=== PATIENT | female | born 1995 | race Caucasian/White ===

== ENCOUNTER → 2018-06-11 | Outpatient (CLI) | payer OTHER ==
--- NOTE | 2018-06-11 15:40 | RADIOLOGY REPORT (SQ) ---
EXAM DESCRIPTION: MRI RT LOWER JOINT COMBO COMPLETED DATE/TIME: 06/11/2018 3:20 pm REASON FOR STUDY: RIGHT HIP PAIN M25.551 PAIN IN RIGHT HIP COMPARISON: None. TECHNIQUE: Righthip images acquired and stored on PACS. Multiplanar images to include fat sensitive sequences as T1, fluid sensitive sequences as T2/STIR and gradient echo sequences. Large FOV fat and fluid sensitive sequences include pelvis and opposite hip. Additional post IV contrast-enhanced images performed. 10 cc. Dotarem IV. LIMITATIONS: None. FINDINGS: BONE CORTEX AND MARROW: No generalized marrow replacement. No occult fracture. No worriso me bone lesions. TARGETED HIP: FEMORAL HEAD: There is a very minimal amount of signal alteration seen only on the T1 weighted images along the superior femoral head. Doubt avascular necrosis. No fracture. No enhancement. ACETABULUM: There appears to be surgical change in the acetabulum. Minimal marrow edema on T2 weight ed imaging anteriorly again likely postsurgical. No occult fracture. LABRUM: Suspicious for labral tear. Intra-articular contrast would be most helpful further evaluatio n. No cartilaginous delamination is noted. TROCHANTER: No trochanteric bursal effusion. No edema/fluid at the insertions of the gluteus medius and gluteus minimus. OPPOSITE HIP: Limited evaluation. No worrisome bone lesions. No significant effusion. PELVIS, LOWER LUMBAR SPINE, SACROILIAC JOINTS: PELVIS : No insufficiency/stress fractures. No significant degenerative changes. Sacroiliac joints normal. L SPINE: No significant osteophytes or degenerative changes of the visualized lumbar spine. MUSCLES AND SOFT TISSUES: Adductors and piriformis normal. Abductors and greater trochanteric bursa n ormal without edema or fluid. Iliopsoas bursa without fluid. Hamstring attachments without edema or t ear. PELVIC SOFT TISSUES: No masses or adenopathy. SCIATIC NERVE: Identified, without masses or abnormal signal. OTHER: No other significant finding. IMPRESSION: There are no enhancing lesions identified. Strongly suspicious for labral tear. Intra-articular contrast would be useful. No cartilaginous del amination. Minimal signal alteration the superior femoral head. Doubt avascular necrosis. Minimal signal alteration in the anterior superior acetabulum which is likely postsurgical. TECHNICAL DOCUMENTATION: JOB ID: [id number] [employer]- All Rights Reserved Reading location - IP/workstation name: [email or web address]
== END ==
LOC: RAD 14:00
PROVIDERS: ATTEND Nurse Practitioner Family
DX: M25.551 Pain in right hip (principal)
CPT/HCPCS: 73723; A9576

== ENCOUNTER → 2018-10-31 | Day surgery (SDC) | payer OTHER ==
--- NOTE | 2018-10-31 15:50 | RADIOLOGY REPORT (SQ) ---
EXAM DESCRIPTION: ARTHRO HIP INJ W/ANESTHESIA; FLUORO/NEEDLE PLACEMENT COMPLETED DATE/TIME: 10/31/2018 3:28 pm REASON FOR STUDY: M25.551 PAIN IN RIGHT HIP M25.551 PAIN IN RIGHT HIP COMPARISON: Non arthrogram MRI right hip without and with IV contrast 06/11/2018 FLUOROSCOPY TIME: 12 seconds 1 digital fluoroscopic image saved to PACS. LIMITATIONS: None. PROCEDURE: Procedure, risks, benefits and alternatives explained to patient who then gave written c onsent. The right hip was marked and a time-out was called for correct marking verification. Entry site marked using fluoroscopic guidance. Hip prepped and draped using sterile technique. Local ane sthesia achieved using 6 mL of 1% lidocaine injection. 22 gauge spinal needle introduced into the vandana int space under direct fluoroscopic visualization. Non-ionic contrast instilled to confirm intra-art icular position. Dilute gadolinium solution then injected. Needle removed and entry site covered w ith sterile bandage. No immediate complications noted. TECHNIQUE: Digital images acquired during fluoroscopy and stored on PACS. Patient immediately take n to the MR suite for additional imaging. INJECTION LOCATION: Right hip CONTRAST TYPE AND AMOUNT: 1 mL of Isovue-300 was injected to confirm intra-articular needle placement followed by 10 mL of dilute Dotarem/Saline mixture. IMPRESSION: SUCCESSFUL NEEDLE PLACEMENT AND INJECTION FOR RIGHT HIP MR ARTHROGRAM. COMMENT: Quality ID 145: Final reports for procedures using fluoroscopy that document radiation exp osure indices, or exposure time and number of fluorographic images (if radiation exposure indices are not available) TECHNICAL DOCUMENTATION: JOB ID: [id number] [employer]- All Rights Reserved Reading location - IP/workstation name: [email or web address]
--- NOTE | 2018-10-31 16:27 | RADIOLOGY REPORT (SQ) ---
EXAM DESCRIPTION: MRI RT LOWER JOINT WITH COMPLETED DATE/TIME: 10/31/2018 4:07 pm REASON FOR STUDY: M25.551 PAIN IN RIGHT HIP M25.551 PAIN IN RIGHT HIP COMPARISON: 06/11/2018 TECHNIQUE: Righthip images acquired and stored on PACS. Multiplanar images to include fat sensitive sequences as T1, fluid sensitive sequences as T2/STIR and gradient echo sequences. Large FOV fat and fluid sensitive sequences include pelvis and opposite hip. LIMITATIONS: None. FINDINGS: BONE CORTEX AND MARROW: No generalized marrow replacement. No occult fracture. No worriso me bone lesions. RIGHT HIP FEMORAL HEAD: No occult fracture. No osteophytes or subchondral cysts. Normal sphericity of femoral h ead/neck junction. No acetabular dysplasia. No evidence femoroacetabular impingement. No significant effusion. ACETABULUM: There is minimal artifact along the periphery of the bony acetabulum from tacks along the acetabular labrum. These are best shown on coronal series 3, images 8-12. No right acetabular subc ortical cyst formation. No significant chondromalacia. LABRUM: Prior right acetabular labral repair with multiple non radiopaque non ferromagnetic tacks leif ng the anterior and superior labrum. The right acetabular labrum is small along its anterior half. No paralabral cysts. TROCHANTER: No trochanteric bursal effusion. No edema/fluid at the insertions of the gluteus medius and gluteus minimus. LEFT: Limited evaluation. No worrisome bone lesions. No significant effusion. Labrum grossly intac t. PELVIS, LOWER LUMBAR SPINE, SACROILIAC JOINTS: PELVIS : No insufficiency/stress fractures. No significant degenerative changes. Sacroiliac joints normal. L SPINE: No significant osteophytes or degenerative changes of the visualized lumbar spine. MUSCLES AND SOFT TISSUES: Adductors and piriformis normal. Abductors and greater trochanteric bursa n ormal without edema or fluid. Iliopsoas bursa without fluid. Hamstring attachments without edema or t ear. PELVIC SOFT TISSUES: No masses or adenopathy. SCIATIC NERVE: Identified, without masses or abnormal signal. OTHER: No other significant finding. IMPRESSION: Right acetabular labral repair, with a diffusely small anterior half of the labrum. No large paralabral cysts. No right femoral head or acetabular roof articular surface irregularity. TECHNICAL DOCUMENTATION: JOB ID: [id number] [employer]- All Rights Reserved Reading location - IP/workstation name: [email or web address]
== END ==
LOC: RAD 14:30
PROVIDERS: ATTEND Orthopaedic Surgery
DX: M25.551 Pain in right hip (principal)
CPT/HCPCS: 73722; 77002; 27095; A9576

== ENCOUNTER → 2019-07-28 | Day surgery (SDC) | payer OTHER ==
--- NOTE | 2019-07-28 13:29 | RADIOLOGY REPORT (SQ) ---
EXAM DESCRIPTION: FLUORO/NEEDLE PLACEMENT; ARTHRO HIP INJ W/ANESTHESIA IMAGES COMPLETED DATE/TIME: 07/28/2019 1:13 pm REASON FOR STUDY: M24.151 OTHER ARTICULAR CARTILAGE DISORDERS, RIGHT HIP M24.151 OTHER ARTICULAR CA RTILAGE DISORDERS, RIGHT HIP COMPARISON: N/. FLUOROSCOPY TIME: 0.17 minutes 1 images submitted to PACS. LIMITATIONS: None. PROCEDURE: Procedure, risks, benefits and alternatives explained to patient who then gave written c onsent. The right hip was marked and a time-out was called for correct marking verification. Entry site marked using fluoroscopic guidance. Hip prepped and draped using sterile technique. Local ane sthesia achieved using 1% lidocaine injection. Hypodermic needle introduced into the joint space un carmine direct fluoroscopic visualization. Non-ionic contrast instilled to confirm intra-articular posit ion. Dilute gadolinium solution then injected. Needle removed and entry site covered with sterile bandage. No immediate complications noted. TECHNIQUE: Digital images acquired during fluoroscopy and stored on PACS. Patient immediately take n to the MR suite for additional imaging. INJECTION LOCATION: Right hip CONTRAST TYPE AND AMOUNT: 1 mL Omnipaque 300, 10 mL dilute Dotarem IMPRESSION: SUCCESSFUL NEEDLE PLACEMENT AND INJECTION FOR RIGHT HIP MR ARTHROGRAM. COMMENT: None Quality ID 145: Final reports for procedures using fluoroscopy that document radiation exposure anel saúl, or exposure time and number of fluorographic images (if radiation exposure indices are not avail able) TECHNICAL DOCUMENTATION: JOB ID: [id number] 2010 [employer]- All Rights Reserved Reading location - IP/workstation name: [email or web address] [id number]
--- NOTE | 2019-07-28 13:29 | RADIOLOGY REPORT (SQ) ---
EXAM DESCRIPTION: FLUORO/NEEDLE PLACEMENT; ARTHRO HIP INJ W/ANESTHESIA IMAGES COMPLETED DATE/TIME: 07/28/2019 1:13 pm REASON FOR STUDY: M24.151 OTHER ARTICULAR CARTILAGE DISORDERS, RIGHT HIP M24.151 OTHER ARTICULAR CA RTILAGE DISORDERS, RIGHT HIP COMPARISON: N/. FLUOROSCOPY TIME: 0.17 minutes 1 images submitted to PACS. LIMITATIONS: None. PROCEDURE: Procedure, risks, benefits and alternatives explained to patient who then gave written c onsent. The right hip was marked and a time-out was called for correct marking verification. Entry site marked using fluoroscopic guidance. Hip prepped and draped using sterile technique. Local ane sthesia achieved using 1% lidocaine injection. Hypodermic needle introduced into the joint space un carmine direct fluoroscopic visualization. Non-ionic contrast instilled to confirm intra-articular posit ion. Dilute gadolinium solution then injected. Needle removed and entry site covered with sterile bandage. No immediate complications noted. TECHNIQUE: Digital images acquired during fluoroscopy and stored on PACS. Patient immediately take n to the MR suite for additional imaging. INJECTION LOCATION: Right hip CONTRAST TYPE AND AMOUNT: 1 mL Omnipaque 300, 10 mL dilute Dotarem IMPRESSION: SUCCESSFUL NEEDLE PLACEMENT AND INJECTION FOR RIGHT HIP MR ARTHROGRAM. COMMENT: None Quality ID 145: Final reports for procedures using fluoroscopy that document radiation exposure anel saúl, or exposure time and number of fluorographic images (if radiation exposure indices are not avail able) TECHNICAL DOCUMENTATION: JOB ID: [id number] 2010 [employer]- All Rights Reserved Reading location - IP/workstation name: [email or web address] [id number]
--- NOTE | 2019-07-28 15:12 | RADIOLOGY REPORT (SQ) ---
EXAM DESCRIPTION: MRI RT LOWER JOINT WITH IMAGES COMPLETED DATE/TIME: 07/28/2019 2:34 pm REASON FOR STUDY: M24.151 OTHER ARTICULAR CARTILAGE DISORDERS, RIGHT HIP M24.151 OTHER ARTICULAR CA RTILAGE DISORDERS, RIGHT HIP COMPARISON: None. TECHNIQUE: Post arthrogram imaging is performed using T1 and T1 and T2 fat saturated sequences of th e pelvis and specific hip of interest. LIMITATIONS: None. FINDINGS: JOINT DISTENSION: Adequate. No loose bodies. BONE MARROW: Generally normal without marrow edema, fracture or bone lesion. No evidence of replacem ent. FEMORAL HEAD, NECK, AND ACETABULUM: Similar configuration. Possible postoperative changes, suspect c hronic resection of anterior femoral bone. Grossly appropriate acetabular coverage. No fracture or AVN detected. There may be very subtle subchondral edema in the upper humeral head. LABRUM AND CARTILAGE: No discrete chondral defects. Previous lateral labral repair with subtle posto perative artifact. There is diminutive anterosuperior labrum with diffuse undercutting throughout th e posterosuperior labrum. This appearance is chronic and unchanged. MUSCLES AND SOFT TISSUES: No mass or edema or bursitis. PELVIC SOFT TISSUES: Chronic right vaginal cyst. SCIATIC NERVE: No regional edema or mass detected. OTHER: No other significant finding. IMPRESSION: 1. Similar appearance of the right acetabulum. Evidence of prior repair with persistent or recurrent diffuse undercutting posterosuperiorly with relative deficiency anterosuperiorly. TECHNICAL DOCUMENTATION: JOB ID: [id number] 2010 [employer]- All Rights Reserved Reading location - IP/workstation name: [email or web address]
== END ==
LOC: RAD 12:32
PROVIDERS: ATTEND Family Medicine
DX: M24.151 Other articular cartilage disorders, right hip (principal)
CPT/HCPCS: 27095; 77002

== ENCOUNTER 2019-08-20 01:34 | Emergency (ER) | payer OTHER ==
[2019-08-20 06:22] LABS: ABSOLUTE LYMPHOCYTES (AUTO) 0.7 10^3/uL (0.5-4.7); ABSOLUTE NEUT (AUTO) 3.2 10^3/uL (1.7-8.2); BASOPHILS % (AUTO) 0.1 % (0-2); HEMATOCRIT 38.4 % (36.0-47.0); HEMOGLOBIN 13.5 g/dL (12.0-15.5); LYMPHOCYTES % (AUTO) 14.2 % (13-45); MEAN CORPUSCULAR HEMOGLOBIN 31.1 pg (27.0-33.4); MEAN CORPUSCULAR HGB CONC 35.1 g/dL (32.0-36.0); MEAN CORPUSCULAR VOLUME 89 fl (80-97); MONOCYTES % (AUTO) 19.9 % (3-13); PLATELET COUNT 129 10^3/uL (150-450); RED BLOOD COUNT 4.33 10^6/uL (3.72-5.28); RED CELL DISTRIBUTION WIDTH 12.5 % (11.5-14.0); SEGMENTED NEUTROPHILS % (AUTO) 65.8 % (42-78); TOTAL CELLS COUNTED % (AUTO) 100 %; WHITE BLOOD COUNT 4.9 10^3/uL (4.0-10.5)
[2019-08-20 06:24] LABS: APPEARANCE,URINE CLEAR; BILIRUBIN,URINE NEGATIVE (NEGATIVE); COLOR,URINE YELLOW; GLUCOSE, URINE NEGATIVE (NEGATIVE); KETONES,URINE 20 mg/dL (NEGATIVE); PROTEIN,URINE NEGATIVE (NEGATIVE); URINE SPECIFIC GRAVITY 1.016; UROBILINOGEN,URINE NEGATIVE mg/dL (<2.0)
[2019-08-20 06:42] LABS: ALBUMIN 4.4 g/dL (3.5-5.0); ALKALINE PHOSPHATASE 56 U/L (38-126); ANION GAP 8 (5-19); ASPARTATE AMINO TRANSFERASE 25 U/L (14-36); BILIRUBIN,TOTAL 0.4 mg/dL (0.2-1.3); BLOOD UREA NITROGEN 9 mg/dL (7-20); CALCIUM 9.1 mg/dL (8.4-10.2); CARBON DIOXIDE 24 mmol/L (22-30); CHLORIDE 104 mmol/L (98-107); GLUCOSE 89 mg/dL (75-110); POTASSIUM 3.6 mmol/L (3.6-5.0); TOTAL PROTEIN 7.1 g/dL (6.3-8.2)
--- NOTE | 2019-08-20 07:28 | RADIOLOGY REPORT (SQ) ---
EXAM DESCRIPTION: X-ray single view chest. CLINICAL HISTORY: 24 years Female, fever COMPARISON: None. TECHNIQUE: Single portable x-ray view of the chest performed on 08/20/2019 at 7:00 AM FINDINGS: The lungs are well expanded and are clear. There is no evidence of a pneumothorax. The cardiac silhouette is normal in size and configuration. The mediastinal contours are normal. No acute osseous abnormality is identified. No focal soft tissue abnormalities are seen. Lines and tubes: None. IMPRESSION: No evidence of acute intrathoracic disease.
--- NOTE | 2019-08-20 08:11 | ER Document Report ---
ED General - General Chief Complaint: Fever Stated Complaint: FEVER/CHILLS/LOW BACK PAIN Time Seen by Provider: 08/20/19 06:05 Primary Care Provider: YASHIRA SALAZAR FNP [Primary Care Provider] - Follow up as needed TRAVEL OUTSIDE OF THE [place] IN LAST 30 DAYS: No - HPI Notes: Chief complaint: Fever, nausea/vomiting and muscular pain. HPI: 24-year-old female has just returned from [facility] within the last 24 hours and she is developed symptoms within the last 12 hours including low- grade fever, nausea with one episode of vomiting and muscular cramping primarily in the low back area. She denies any sore throat, nasal congestion, cough, dyspnea, skin rashes or any alteration of sense of taste or smell. Patient is taking no regular medications. She has no known allergies. Prior history is remarkable for previous bilateral hip replacements due to orthopedic injury sustained while she was in [place]. She denies any pain in either hip joint at this time. - Related Data Allergies/Adverse Reactions: No Known Allergies Allergy (Unverified 08/20/19 05:28) Past Medical History - General Information source: Patient - Social History Smoking Status: Former Smoker Frequency of alcohol use: None Drug Abuse: Marijuana Family History: Reviewed & Not Pertinent Patient has homicidal ideation: No Past Surgical History: Reports: Orthopedic Surgery Review of Systems - Review of Systems Notes: Constitutional: As per HPI. HENT: Negative for sore throat. Eyes: Negative for visual changes. Cardiovascular: Negative for chest pain. Respiratory: Negative for shortness of breath. Gastrointestinal: As per HPI. Genitourinary: Negative for dysuria. Musculoskeletal: As per HPI. Skin: Negative for rash. Neurological: Negative for headaches, focal weakness or numbness. 10 point ROS negative except as marked above and in HPI. Physical Exam - Vital signs Vitals: Temp Pulse Resp BP Pulse Ox 100.8 F H 93 16 119/76 100 08/20/19 02:07 08/20/19 02:07 08/20/19 02:07 08/20/19 02:07 08/20/19 02:07 Interpretation: Febrile - Notes Notes: GENERAL: Well-developed well-nourished female approximately stated age appearing in no acute distress. SKIN: Warm and slightly moist. Good turgor no rashes. HEAD: Normocephalic atraumatic. EYES: PERRLA. EOMI. Conjunctivae and sclerae clear. EARS: CANALS AND TMS CLEAR. NOSE: CLEAR. MOUTH: Moist mucosa. Good dentition. No stridor or edema. No drooling. NECK: Supple. No masses or thyromegaly. No adenopathy. Carotids 2+ without bruits. No JVD. BACK: Symmetrical without tenderness. CHEST: Respirations unlabored. Breath sounds clear and symmetrical. HEART: Regular rhythm. No murmur gallop or rub. ABDOMEN: Soft nontender without masses, organomegaly or rebound. Bowel sounds normally active. No bruits. GENITALIA: Deferred. EXTREMITIES: No edema. No calf tenderness. Cap refill less than 1.5 seconds. Dorsalis pedis and posterior tibial pulses 3+ and symmetrical. NEUROLOGICAL: GCS 15. Alert and oriented x3. Normal gait. Fluent speech. Cranial nerves II through XII intact. Sensorimotor and cerebellar normal. Normal tone. PSYCHIATRIC: Appropriate affect. Course - Re-evaluation Re-evalutation: 08/20/19 09:26 CBC, urinalysis, chest x-ray and comprehensive metabolic profile are all unremarkable. Rapid strep test is negative. Influenza a and B screen negative. Patient appears to have a viral syndrome. This certainly could be COVID al though she appears completely stable at this time. I have advised symptomatic treatment at home with increase fluids, acetaminophen etc. She needs to self isolate at home. We have submitted a COVID test for the patient and I explained to her that this may take as long as 72 hours to be resulted. She will be contacted regarding these results by the hospital. She is to return here as needed for new or worsening symptoms and otherwise follow-up by telephone with her primary care physician. 08/20/19 09:31 Findings, clinical impression and plan of treatment have been discussed with patient/family. Understanding of current findings and recommendations has been acknowledged by them and there is agreement regarding disposition and follow-up. - Vital Signs Vital signs: Temp Pulse Resp BP Pulse Ox 99.2 F 79 18 124/69 98 08/20/19 09:08 08/20/19 09:08 08/20/19 09:08 08/20/19 09:08 08/20/19 09:08 - Laboratory Result Diagrams: 08/20/19 05:40 08/20/19 05:40 Laboratory results interpreted by me: 08/20/19 08/20/19 08/20/19 02:30 05:40 05:40 Plt Count 129 L [place] % (Auto) 19.9 H Sodium 136.0 L Urine Ketones 20 H Urine Blood SMALL H - Diagnostic Test Radiology reviewed: Reports reviewed - Normal portable chest x-ray per radiologist. Discharge - Discharge Clinical Impression: Fever, Acute viral syndrome, Person under investigation for COVID-19 Condition: Stable Disposition: HOME, SELF-CARE Instructions: Acetaminophen, Viral Syndrome ([facility]) Additional Instructions: You have findings to suggest an acute viral illness. This could possibly be an early COVID-19 infection. We recommend that you self quarantine at home for the next 2 weeks. You may take Tylenol and increase oral fluids. You may return to the hospital as needed for new or worsening symptoms. You will be contacted by the hospital regarding the result of the COVID screening test which has been performed today. You may also follow-up with your primary care doctor by telephone. Referrals: YASHIRA SALAZAR FNP [Primary Care Provider] - Follow up as needed
[2019-08-20] MEDS ORDERED: ACETAMINOPHEN 325 MG TABLET PO ONE (08:27)
[2019-08-20 09:08] VITALS: BP 124/69
[2019-08-20 09:15] LABS: A TYPE INFLUENZA AG NEGATIVE (NEGATIVE); B INFLUENZA AG NEGATIVE (NEGATIVE)
== END 2019-08-20 09:40 | disposition home or self-care (01) ==
LOC: ER 01:34
DX: U07.1 COVID-19 (principal); R50.9 Fever, unspecified; M54.5 Low back pain; R11.2 Nausea with vomiting, unspecified; M79.10 Myalgia, unspecified site; Z96.643 Presence of artificial hip joint, bilateral; Z87.891 Personal history of nicotine dependence; Z20.828 Contact with and (suspected) exposure to other viral communicable diseases
CPT/HCPCS: 99283; 36415; 87070; 87880; 85025; 87635; 80053; 81001; 87804; 71045; C9803